=== PATIENT | male | born 1950 | race Caucasian/White ===

== ENCOUNTER 2018-09-10 15:11 | Emergency (ER) | payer MEDICAID, MEDICARE ==
[2018-09-10] MEDS ORDERED: HYDROmorphone HCL 2 MG/ML VL IM ONE ×2 (15:45)
[2018-09-10] MEDS ORDERED: ONDANSETRON ODT 4 MG TAB PO ONE ×2 (15:45)
[2018-09-10] MEDS ORDERED: HYDROcodone-ACET 10/325MG TAB PO ONE ×2 (15:45)
[2018-09-10 17:37] VITALS: BP 120/77
== END 2018-09-10 16:22 | disposition home or self-care (01) ==
LOC: ER 15:11 → EDBD 15:11 → ER 16:22
DX: K64.9 Unspecified hemorrhoids (principal)
CPT/HCPCS: 96372; 99283; J1170; Q0162

== ENCOUNTER 2018-11-04 11:04 | Inpatient (IN) | payer MEDICARE ==
[~2018-11-04] VITALS: Ht 170.2 cm; Wt 95.0 kg
[2018-11-04] MEDS ORDERED: SODIUM CHLORIDE 0.9% 1,000 ML IV ONE (11:18)
[2018-11-04 12:13] LABS: Basophils # (auto) 0.1 uL; Eosinophils # (auto) 0.5 uL; Neutrophils # (auto) 9.2 uL
[2018-11-04 12:18] LABS: Basophils % (auto) 0.4 % (0.0-2.0); Eosinophils % (auto) 3.6 % (0.0-7.0); Hematocrit 41.7 % (41.0-53.0); Lymphocytes # (auto) 3.3 uL; Lymphocytes % (auto) 23.3 % (10.0-50.0); Mean Corpuscular Hemoglobin 23.4 pg (28.0-32.0); Mean Corpuscular Hgb Conc. 31.2 g/dL (32.0-36.0); Monocytes # (auto) 1.1 uL; Neutrophils % (auto) 64.7 % (37.0-80.0); Platelet Count (auto) 316 10^3/uL (140-450); Red Blood Cells 5.56 10^6/uL (4.5-5.90); Red Cell Distribution Width 18.6 % (11.8-14.3); White Blood Cell 14.2 10^3/uL (4.4-10.8)
[2018-11-04 12:19] LABS: Chloride 98 mmol/L (98-107); Potassium 4.8 mmol/L (3.5-5.1); Sodium 132 mmol/L (136-145)
[2018-11-04 12:25] LABS: INR 1.07 (0.9-1.15); Partial Thromboplastin Time 29.2 sec (23.78-33.04); Prothrombin Time 11.4 sec (9.27-12.13)
[2018-11-04 12:28] LABS: Alanine Aminotransferase 58 U/L (16-61); Albumin 3.4 g/dL (3.4-5.0); Alkaline Phosphatase 127 U/L (45-117); Anion Gap 10 (5-15); Aspartate Aminotransferase 31 U/L (15-37); BUN/Creatinine Ratio 9.3; Bilirubin, Total 0.5 mg/dL (0.2-1.0); Blood Urea Nitrogen 30 mg/dL (7-18); Calcium 8.6 mg/dL (8.5-10.1); Carbon Dioxide 24 mmol/L (21-32); GFR African American 25 mL/min; GFR Non-African American 20 mL/min; Glucose 172 mg/dL (74-106)
[2018-11-04] MEDS ORDERED: NITROGLYCERIN 0.4 MG SL TAB SL PRN (13:15)
[2018-11-04] MEDS ORDERED: cefTRIAXone 1GM/50ML D5W 50 ML IV ONE (13:15)
[2018-11-04] MEDS ORDERED: DEXTROSE (50%) 50ML SYRG IV PRN (13:15)
[2018-11-04] MEDS ORDERED: MORPHINE SULFATE 4 MG/ML SYR/VIAL IV PRN (13:15)
[2018-11-04 13:33] LABS: Urine Bacteria FEW /hpf (None Seen); Urine Blood 2+ /uL (Negative); Urine Budding Yeast FEW /hpf (None Seen); Urine Mucus FEW (None Seen); Urine WBC 2 /hpf (0 - 3)
[2018-11-04 13:46] LABS: Cholesterol 122 mg/dL (< 200); Triglycerides 221 mg/dL (< 150)
[2018-11-04 13:50] LABS: HDL Cholesterol 36 mg/dL (40-59); LDL Cholesterol 55 mg/dL (< 100)
[2018-11-04] MEDS: SODIUM CHLORIDE 0.9% 1,000 ML IV SCH ×2 (14:01→22:00)
[2018-11-04] MEDS: ONDANSETRON HCL 4 MG/2 ML VIAL IV PRN (14:14)
[2018-11-04] MEDS: MORPHINE SULFATE 4 MG/ML SYR/VIAL IV PRN ×2 (14:14→20:17)
--- NOTE | 2018-11-04 15:27 | NUR ---
Pt arrived to floor, Echo being done at bedside, call hoang light within reach, no distress noted at this time.
[2018-11-04 16:40] VITALS: BP 136/83
[2018-11-04 17:00] VITALS: BP 136/83
[2018-11-04] MEDS: InsuLIN REG 1unit/0.01ml Soln (100units/ml) SC SCH ×2 (17:00→22:00)
[2018-11-04] MEDS: ACCU-CHEK COMFORT CURVE STRIP VI SCH ×2 (17:00→21:59)
--- NOTE | 2018-11-04 17:06 | NUR ---
RE: Nephrology consult Spoke with Dr. Bran on the telephone. Updated MD on patient's status and labs. MD verbalized understanding.
[2018-11-04] MEDS ORDERED: MANNITOL 20% SOLN 100 gm/500ml 62.5 ML IV ONE (18:15)
[2018-11-04] MEDS: metroNIDAZOLE 500MG/100ML 100 ML IV SCH (18:24)
[2018-11-04] MEDS: TAMSULOSIN HYDROCHLORIDE 0.4 MG CAP PO SCH (18:24)
--- NOTE | 2018-11-04 18:52 | NUR ---
End of shift patient resting in bed with even and unlabored respirations on 2L NC. Patient instructed on the POC, fall precautions and to call for assistance as needed. Fall precautions in place with bed in low locked position. Call light within reach. Will endorse care to NOC RN.
--- NOTE | 2018-11-04 18:55 | NUR ---
RE: scheduled Mannitol dose Called pharmacy RE: scheduled one time dose of Mannitol. Flagyl currently being administered. Rc pharmacist, stated the scheduled time cannot be changed and to administer dose after Flagyl is completed. Will endorse dose to NOC RN.
--- NOTE | 2018-11-04 19:25 | NUR ---
Opening Shift Note Received report from Tootie WAYNE. Assumed care of patient, awake and alert. No S/S of distress/SOB or pain. Instructed on POC and to call for assist PRN, will continue to monitor for changes Q1hr and PRN.
[2018-11-04 20:00] VITALS: BP 115/73
[2018-11-04 21:36] VITALS: BP 115/73
[2018-11-05] MEDS: metroNIDAZOLE 500MG/100ML 100 ML IV SCH ×5 (00:26→23:55)
--- NOTE | 2018-11-05 02:53 | NUR ---
Sent urine sample for urine bacterial culture. Strained the urine and noted 1 stone.
[2018-11-05 05:00] VITALS: BP 95/52
[2018-11-05] MEDS: SODIUM CHLORIDE 0.9% 1,000 ML IV SCH ×3 (06:10→22:14)
[2018-11-05 06:27] LABS: Basophils # (auto) 0 uL; Basophils % (auto) 0.1 % (0.0-2.0); Eosinophils # (auto) 0.2 uL
[2018-11-05 06:29] LABS: Hematocrit 39.1 % (41.0-53.0); Hemoglobin 12.7 g/dL (13.5-17.5); Lymphocytes # (auto) 2.9 uL; Lymphocytes % (auto) 22.9 % (10.0-50.0); Mean Corpuscular Hemoglobin 23.5 pg (28.0-32.0); Mean Corpuscular Hgb Conc. 32.4 g/dL (32.0-36.0); Mean Corpuscular Volume 72.6 fL (80.0-100.0); Monocytes # (auto) 1.6 uL; Monocytes % (auto) 12.4 % (0.0-12.0); Neutrophils # (auto) 7.9 uL; Neutrophils % (auto) 62.6 % (37.0-80.0); Nucleated Red Blood Cells % 0.1 %; Platelet Count (auto) 285 10^3/uL (140-450); Red Blood Cells 5.38 10^6/uL (4.5-5.90); Red Cell Distribution Width 18.2 % (11.8-14.3); White Blood Cell 12.6 10^3/uL (4.4-10.8)
[2018-11-05 06:38] LABS: Albumin 3.1 g/dL (3.4-5.0); Calcium 8.3 mg/dL (8.5-10.1); Potassium 4.5 mmol/L (3.5-5.1)
[2018-11-05 06:42] LABS: BUN/Creatinine Ratio 11.4; Bilirubin, Total 0.4 mg/dL (0.2-1.0); Total Protein 7.3 g/dL (6.4-8.2)
[2018-11-05] MEDS: InsuLIN REG 1unit/0.01ml Soln (100units/ml) SC SCH ×4 (06:46→21:40)
[2018-11-05] MEDS: ACCU-CHEK COMFORT CURVE STRIP VI SCH ×4 (06:46→21:39)
--- NOTE | 2018-11-05 07:45 | NUR ---
Opening Shift Note Assumed care of patient, awake and alert and oriented x4. No S/S of distress/SOB. Mild pain noted to abdomen per patient. Abdomen round, non-tender, and nondistended with bowel sounds active x4 quadrants. Instructed on POC and to call for assist PRN, will continue to monitor for changes. Patient instructed that stool sample pending collection and that urine will need to be continued to be strained. Patient stated understanding.
[2018-11-05 08:00] VITALS: BP 126/67
[2018-11-05] MEDS: cefTRIAXone 1GM/50ML D5W 50 ML IV SCH (09:03)
--- NOTE | 2018-11-05 10:10 | NUR ---
Stool sample collected and sent to lab. Stool noted to be watery and bright red. Dr Hernandez at nursing station and was able to see stool sample collected. Per Dr Hernandez GI consult to be ordered, along with CBC now. Dr Hernandez also made aware patient c/o of abdominal pain and cramps. Will continue to monitor.
[2018-11-05] MEDS ORDERED: PANTOPRAZOLE 40 MG/10 ML VIAL IV ONE (10:30)
[2018-11-05] MEDS ORDERED: GOLYTELY 4L KIT PO ONE (10:30)
[2018-11-05] MEDS: MORPHINE SULFATE 4 MG/ML SYR/VIAL IV PRN ×2 (11:21→18:25)
--- NOTE | 2018-11-05 11:26 | NUR ---
Dr Troncoso at bedside and assessing patient. Dr Troncoso aware patient had bright red stool and c/o abdominal pain and cramping. Will cont to monitor.
[2018-11-05 11:34] LABS: Basophils # (auto) 0 uL; Basophils % (auto) 0.2 % (0.0-2.0); Eosinophils # (auto) 0.3 uL; Hemoglobin 12.7 g/dL (13.5-17.5)
[2018-11-05 11:36] LABS: Eosinophils % (auto) 1.9 % (0.0-7.0); Hematocrit 40.2 % (41.0-53.0); Lymphocytes # (auto) 3.5 uL; Lymphocytes % (auto) 25.4 % (10.0-50.0); Mean Corpuscular Hemoglobin 22.9 pg (28.0-32.0); Mean Corpuscular Hgb Conc. 31.5 g/dL (32.0-36.0); Mean Corpuscular Volume 72.7 fL (80.0-100.0); Monocytes # (auto) 1.7 uL; Monocytes % (auto) 12.4 % (0.0-12.0); Neutrophils # (auto) 8.2 uL; Neutrophils % (auto) 60.1 % (37.0-80.0); Platelet Count (auto) 288 10^3/uL (140-450); Red Blood Cells 5.52 10^6/uL (4.5-5.90); Red Cell Distribution Width 18.3 % (11.8-14.3); White Blood Cell 13.7 10^3/uL (4.4-10.8)
--- NOTE | 2018-11-05 11:45 | NUR ---
Per Dr Troncoso do not administer the golytely that was ordered earlier today. Per Dr Troncoso golytely d/c and to be done on Thursday instead. Patient to be for colonoscopy on Thursday as well per Dr Troncoso. Will continue to monitor.
[2018-11-05 12:00] VITALS: BP 134/84
[2018-11-05 16:00] VITALS: BP 111/78
[2018-11-05] MEDS: TAMSULOSIN HYDROCHLORIDE 0.4 MG CAP PO SCH (17:36)
[2018-11-05 18:08] LABS: Basophils # (auto) 0 uL; Eosinophils # (auto) 0.3 uL; Monocytes # (auto) 1.7 uL; Neutrophils # (auto) 7.4 uL
[2018-11-05 18:09] LABS: Eosinophils % (auto) 2.2 % (0.0-7.0); Hematocrit 36.4 % (41.0-53.0); Hemoglobin 11.7 g/dL (13.5-17.5); Lymphocytes # (auto) 3.3 uL; Lymphocytes % (auto) 25.8 % (10.0-50.0); Mean Corpuscular Hemoglobin 23.5 pg (28.0-32.0); Mean Corpuscular Hgb Conc. 32.1 g/dL (32.0-36.0); Mean Corpuscular Volume 73.4 fL (80.0-100.0); Monocytes % (auto) 13.6 % (0.0-12.0); Neutrophils % (auto) 58.4 % (37.0-80.0); Platelet Count (auto) 263 10^3/uL (140-450); Red Blood Cells 4.96 10^6/uL (4.5-5.90); Red Cell Distribution Width 18.2 % (11.8-14.3); White Blood Cell 12.7 10^3/uL (4.4-10.8)
--- NOTE | 2018-11-05 19:05 | NUR ---
Patient care and report handed off to Melissa WAYNE. Made aware that patient had couple episodes of bloody stool. Also made aware that patient scheduled for colonoscopy on Thursday11/08/18.
[2018-11-05 20:00] VITALS: BP 121/72
[2018-11-05] MEDS: PANTOPRAZOLE 40 MG/10 ML VIAL IV SCH (21:39)
[2018-11-05 22:18] VITALS: BP 121/72
[2018-11-06] MEDS: SODIUM CHLORIDE 0.9% 1,000 ML IV SCH ×3 (05:15→21:15)
[2018-11-06 05:55] VITALS: BP 101/63
[2018-11-06 05:58] LABS: Basophils # (auto) 0 uL; Basophils % (auto) 0.1 % (0.0-2.0); Eosinophils # (auto) 0.4 uL; Eosinophils % (auto) 3.8 % (0.0-7.0); Hematocrit 35.2 % (41.0-53.0); Hemoglobin 11.2 g/dL (13.5-17.5); Lymphocytes # (auto) 2.7 uL; Lymphocytes % (auto) 23.5 % (10.0-50.0); Mean Corpuscular Hemoglobin 23.2 pg (28.0-32.0); Mean Corpuscular Hgb Conc. 31.7 g/dL (32.0-36.0); Mean Corpuscular Volume 73.1 fL (80.0-100.0); Monocytes # (auto) 1.2 uL; Monocytes % (auto) 10.9 % (0.0-12.0); Neutrophils # (auto) 7.1 uL; Neutrophils % (auto) 61.7 % (37.0-80.0); Nucleated Red Blood Cells % 0.1 %; Platelet Count (auto) 249 10^3/uL (140-450); Red Blood Cells 4.81 10^6/uL (4.5-5.90); Red Cell Distribution Width 18.1 % (11.8-14.3); White Blood Cell 11.4 10^3/uL (4.4-10.8)
[2018-11-06 06:11] LABS: Calcium 8.3 mg/dL (8.5-10.1); Potassium 4.5 mmol/L (3.5-5.1)
[2018-11-06] MEDS: metroNIDAZOLE 500MG/100ML 100 ML IV SCH ×3 (06:15→17:49)
[2018-11-06 06:16] LABS: Albumin 2.7 g/dL (3.4-5.0); BUN/Creatinine Ratio 10.2; Bilirubin, Total 0.3 mg/dL (0.2-1.0); Total Protein 6.4 g/dL (6.4-8.2)
[2018-11-06] MEDS: ACCU-CHEK COMFORT CURVE STRIP VI SCH ×4 (07:03→22:00)
[2018-11-06] MEDS: InsuLIN REG 1unit/0.01ml Soln (100units/ml) SC SCH ×4 (07:03→21:34)
--- NOTE | 2018-11-06 07:34 | NUR ---
Patient stable at this time, no complaints of pain. Endorsed care to Meredith WAYNE.
[2018-11-06 09:00] VITALS: BP 115/77
[2018-11-06] MEDS: cefTRIAXone 1GM/50ML D5W 50 ML IV SCH (09:49)
[2018-11-06] MEDS: PANTOPRAZOLE 40 MG/10 ML VIAL IV SCH ×2 (09:49→21:32)
[2018-11-06] MEDS: HYDROcodone-ACET 5/325MG TAB PO PRN ×2 (11:35→21:33)
[2018-11-06 12:45] VITALS: BP 103/73
[2018-11-06] MEDS: MORPHINE SULFATE 4 MG/ML SYR/VIAL IV PRN (16:19)
[2018-11-06] MEDS: TAMSULOSIN HYDROCHLORIDE 0.4 MG CAP PO SCH (17:49)
[2018-11-06 18:00] VITALS: BP 103/68
[2018-11-06] MEDS: ZOLPIDEM TARTRATE 5 MG TAB PO PRN (21:32)
[2018-11-06 21:56] VITALS: BP 120/82
[2018-11-07] MEDS: ONDANSETRON HCL 4 MG/2 ML VIAL IV PRN ×2 (04:36→09:58)
[2018-11-07 04:48] VITALS: BP 106/78
[2018-11-07] MEDS: SODIUM CHLORIDE 0.9% 1,000 ML IV SCH ×3 (05:15→21:15)
[2018-11-07] MEDS: InsuLIN REG 1unit/0.01ml Soln (100units/ml) SC SCH ×4 (06:00→21:59)
[2018-11-07] MEDS: ACCU-CHEK COMFORT CURVE STRIP VI SCH ×4 (06:03→22:04)
[2018-11-07] MEDS: metroNIDAZOLE 500MG/100ML 100 ML IV SCH ×6 (06:07→23:43)
[2018-11-07 06:46] LABS: Basophils # (auto) 0 uL; Basophils % (auto) 0.3 % (0.0-2.0); Eosinophils # (auto) 0.4 uL; Lymphocytes # (auto) 2.2 uL; Mean Corpuscular Hemoglobin 23.5 pg (28.0-32.0); Mean Corpuscular Hgb Conc. 31.9 g/dL (32.0-36.0); Monocytes # (auto) 0.9 uL; Nucleated Red Blood Cells % 0.1 %; Red Cell Distribution Width 18.4 % (11.8-14.3); White Blood Cell 6.9 10^3/uL (4.4-10.8)
[2018-11-07 06:52] LABS: Eosinophils % (auto) 6.5 % (0.0-7.0); Hematocrit 37.8 % (41.0-53.0); Lymphocytes % (auto) 32.4 % (10.0-50.0); Mean Corpuscular Volume 73.9 fL (80.0-100.0); Neutrophils # (auto) 3.3 uL; Neutrophils % (auto) 47.8 % (37.0-80.0); Platelet Count (auto) 254 10^3/uL (140-450); Red Blood Cells 5.12 10^6/uL (4.5-5.90)
[2018-11-07 06:55] LABS: Potassium 4.3 mmol/L (3.5-5.1)
[2018-11-07 07:04] LABS: BUN/Creatinine Ratio 6.8; Bilirubin, Total 0.3 mg/dL (0.2-1.0); Calcium 8.2 mg/dL (8.5-10.1); Phosphorus 3.3 mg/dL (2.5-4.90)
[2018-11-07 08:00] VITALS: BP 123/81
[2018-11-07] MEDS: HYDROcodone-ACET 5/325MG TAB PO PRN ×2 (08:22→21:58)
[2018-11-07] MEDS: cefTRIAXone 1GM/50ML D5W 50 ML IV SCH (09:59)
[2018-11-07] MEDS: PANTOPRAZOLE 40 MG/10 ML VIAL IV SCH ×2 (09:59→21:58)
[2018-11-07 12:00] VITALS: BP 145/80
[2018-11-07] MEDS ORDERED: GOLYTELY 4L KIT PO ONE (12:00)
--- NOTE | 2018-11-07 13:08 | NUR ---
Patient states he had a BM and the stool was black. Will inform hospitalist.
--- NOTE | 2018-11-07 15:13 | NUR ---
Patient states he can't decide if he wants the colonoscopy on Thursday. He states he wants to speak to the doctor first. Assured patient that he can make his decision after he speaks to his doctor. Assured patient that his doctor will see him today.
[2018-11-07 16:00] VITALS: BP 141/91
--- NOTE | 2018-11-07 16:03 | NUR ---
Patient states he does not want to wait for the doctor to see him. Patient states he wants to go home and will sign out AMA. Assured patient that Dr. Hernandez is here and will see him soon. Patient states he will wait for 15 minutes. Will continue to monitor.
--- NOTE | 2018-11-07 16:27 | NUR ---
Dr. Hernandez in to see patient as hospitalist. Dr. Hernandez spoke with patient and patient informed him that he had a black stool today. Dr. Hernandez advised patient to stay for the GI procedure. Patient agreed. Will continue to monitor.
[2018-11-07] MEDS ORDERED: MORPHINE SULFATE 10 MG/ML INJ 1ML SDV IV PRN (16:45)
[2018-11-07] MEDS: TAMSULOSIN HYDROCHLORIDE 0.4 MG CAP PO SCH (17:46)
--- NOTE | 2018-11-07 18:28 | NUR ---
Patient is sitting up in chair eating dinner. Patient states he does not want to be hooked up to the IV as he will need to go to the bathroom. Explained to patient that his Flagyl needs to infuse. Patient states he does not want to have IV at this time. Will continue to monitor.
--- NOTE | 2018-11-07 20:04 | NUR ---
open note assumed care of pt. upon entering room, pt awake and alert. denies any pain, no s/s distress noted or expressed. pt updated on plan of care. no further questions at this time. call light in reach, will continue to monitor.
[2018-11-07 21:36] VITALS: BP 132/92
[2018-11-07] MEDS: ZOLPIDEM TARTRATE 5 MG TAB PO PRN (22:59)
[2018-11-08] MEDS: MORPHINE SULFATE 10 MG/ML INJ 1ML SDV IV PRN ×2 (03:31→13:42)
[2018-11-08 04:13] VITALS: BP 161/87
[2018-11-08] MEDS ORDERED: GOLYTELY 4L KIT PO ONE (05:00)
[2018-11-08] MEDS: SODIUM CHLORIDE 0.9% 1,000 ML IV SCH ×2 (05:36→13:42)
[2018-11-08] MEDS: metroNIDAZOLE 500MG/100ML 100 ML IV SCH ×2 (05:36→12:00)
[2018-11-08 05:49] VITALS: BP 139/91
[2018-11-08 06:32] LABS: Basophils # (auto) 0 uL; Hemoglobin 11.5 g/dL (13.5-17.5); Mean Corpuscular Hemoglobin 23.8 pg (28.0-32.0)
[2018-11-08 06:35] LABS: Basophils % (auto) 0.3 % (0.0-2.0); Eosinophils # (auto) 0.4 uL; Eosinophils % (auto) 7.1 % (0.0-7.0); Hematocrit 35.4 % (41.0-53.0); Lymphocytes # (auto) 1.3 uL; Mean Corpuscular Hgb Conc. 32.4 g/dL (32.0-36.0); Mean Corpuscular Volume 73.5 fL (80.0-100.0); Monocytes # (auto) 0.9 uL; Monocytes % (auto) 16.1 % (0.0-12.0); Neutrophils % (auto) 53.5 % (37.0-80.0); Nucleated Red Blood Cells % 0.1 %; Platelet Count (auto) 294 10^3/uL (140-450); Red Blood Cells 4.82 10^6/uL (4.5-5.90); Red Cell Distribution Width 18.6 % (11.8-14.3); White Blood Cell 5.6 10^3/uL (4.4-10.8)
[2018-11-08] MEDS: InsuLIN REG 1unit/0.01ml Soln (100units/ml) SC SCH ×2 (06:41→11:30)
[2018-11-08] MEDS: ACCU-CHEK COMFORT CURVE STRIP VI SCH ×2 (06:41→11:30)
[2018-11-08 07:03] LABS: Potassium 4.1 mmol/L (3.5-5.1)
[2018-11-08 07:10] LABS: BUN/Creatinine Ratio 5.9; Calcium 8.4 mg/dL (8.5-10.1)
--- NOTE | 2018-11-08 08:00 | NUR ---
Opening shift note: Patient is a/o x-4, sitting in bed with bed in low position with call hoang within reach; side rails up x-2. Patient states pain 10/10 on pain scale. Preparing to administer medication per JAN.
[2018-11-08] MEDS: cefTRIAXone 1GM/50ML D5W 50 ML IV SCH (08:08)
[2018-11-08] MEDS: PANTOPRAZOLE 40 MG/10 ML VIAL IV SCH (08:08)
[2018-11-08] MEDS ORDERED: FLUMAZENIL 0.1 MG/ML INJ 10ML MDV IV ONE (08:35)
[2018-11-08] MEDS ORDERED: NALOXONE HCL 0.4 MG/ML VIAL ONE (08:35)
[2018-11-08] MEDS ORDERED: SODIUM CHLORIDE LOCK 10 ML ONE (08:35)
[2018-11-08] MEDS ORDERED: diphenhdrAMINE HCL 50 MG/1 ML VL ONE (08:36)
[2018-11-08] MEDS ORDERED: SIMETHICONE 40 MG/0.6 ML ORAL DROP ONE (08:44)
--- NOTE | 2018-11-08 08:50 | NUR ---
Patient being transported down to pre-op in preparation for colonoscopy. Patient is A/O x-4 and not exhibiting any s/s of distress at this time.
[2018-11-08 08:58] VITALS: BP 149/90
[2018-11-08] MEDS ORDERED: LIDOCAINE VISCOUS 2% 15ML UD ONE (09:20)
[2018-11-08] MEDS: MIDAZOLAM HCL 5 MG/ML-1ML VIAL ONE ×4 (09:24→09:37)
[2018-11-08] MEDS: fentaNYL CITRATE 100 MCG/2 ML VL ONE ×3 (09:24→09:34)
--- NOTE | 2018-11-08 10:15 | NUR ---
Patient arriving back into room from colonoscopy; A/O and not exhibiting any s/s of distress nor stating any pain at this time. Patient is preparing to ambulate to the restroom at this time. Will continue to monitor the patient.
--- NOTE | 2018-11-08 12:04 | NUR ---
Nutrition Assessment Notes please see attached link for complete assessment Est. Needs ABW [id number] kcal (23-25 kcal/kgBW), 81-89 gms pro (1.0-1.1 gms/kgBW). Will continue to monitor pertinent labs and reassess nutrient need prn Addendum: 11/08/18 at [address] Amended: Links added.
[2018-11-08 12:59] VITALS: BP 140/86
[2018-11-08] MEDS: HYDROcodone-ACET 5/325MG TAB PO PRN (15:16)
[2018-11-08 16:14] VITALS: BP 140/86
[2018-11-08 16:34] VITALS: BP 137/75
[2018-11-08] MEDS ORDERED: PANTOPRAZOLE 40 MG TAB PO SCH (22:00)
== END 2018-11-08 16:47 | disposition home or self-care (01) | DRG 871 ==
LOC: EDBD 11:04 → ER 11:05 → TELE 13:19 → TELE-WESTW 15:15
PROVIDERS: ADMIT Nurse Practitioner Acute Care; ATTEND Family Medicine
PROC: 0DBL8ZX Excision of Transverse Colon, Via Natural or Artificial Opening Endoscopic, Diagnostic (ICD-10-PCS; 2018-11-08)
PROC: 0DB68ZX Excision of Stomach, Via Natural or Artificial Opening Endoscopic, Diagnostic (ICD-10-PCS; principal; 2018-11-08 09:19)
PROC: 0DBG8ZX Excision of Left Large Intestine, Via Natural or Artificial Opening Endoscopic, Diagnostic (ICD-10-PCS; 2018-11-08 09:19)
DX: A41.9 Sepsis, unspecified organism (principal); N17.0 Acute kidney failure with tubular necrosis; N13.6 Pyonephrosis; I13.0 Hypertensive heart and chronic kidney disease with heart failure and stage 1 through stage 4 chronic kidney disease, or unspecified chronic kidney disease; K92.2 Gastrointestinal hemorrhage, unspecified; R65.20 Severe sepsis without septic shock; I50.9 Heart failure, unspecified; E66.9 Obesity, unspecified; K57.30 Diverticulosis of large intestine without perforation or abscess without bleeding; E11.65 Type 2 diabetes mellitus with hyperglycemia; M54.5 Low back pain; K29.80 Duodenitis without bleeding; K26.9 Duodenal ulcer, unspecified as acute or chronic, without hemorrhage or perforation; K52.9 Noninfective gastroenteritis and colitis, unspecified; G89.29 Other chronic pain; E11.22 Type 2 diabetes mellitus with diabetic chronic kidney disease; I25.10 Atherosclerotic heart disease of native coronary artery without angina pectoris; E78.5 Hyperlipidemia, unspecified; N18.9 Chronic kidney disease, unspecified; Z90.49 Acquired absence of other specified parts of digestive tract; Z79.4 Long term (current) use of insulin; Z95.5 Presence of coronary angioplasty implant and graft; Z87.442 Personal history of urinary calculi; Z68.32 Body mass index [BMI] 32.0-32.9, adult
CPT/HCPCS: 36415; 43239; 45380; 70450; 71045; 74176; 76775; 80048; 80053; 80061; 81001; 82962; 83036; 83605; 83735; 83880; 84100; 84484; 85025; 85610; 85730; 86850; 86900; 86901; 87040; 87045; 87899; 93005; 93306; 93886; 96361; 96374; 96375; A6257; C9113; G0378; J0696; J1815; J2250; J2405; J3490